=== PATIENT | female | born 2000 | race Caucasian/White ===

== ENCOUNTER 2019-06-21 07:29 | Emergency (ER) | payer BC ==
[2019-06-21 07:55] VITALS: BP 112/76
--- NOTE | 2019-06-21 08:15 | UC ---
Respiratory Complaint HPI - HPI Summary HPI Summary: cough x 2 days cough is dry and harsh , worse at night, worse during exertion and deep breathing better with rest, +nasal congestion, pnd, no fever, + chills + wheezing - History of Current Complaint Chief Complaint: UCRespiratory Stated Complaint: SINUS/CHEST CONGESTION COUGH Time Seen by Provider: 06/21/19 08:06 Hx Obtained From: Patient Hx Last Menstrual Period: 06/20/19 ?: No Onset/Duration: Gradual Onset, Lasting Days - 2, Still Present Timing: Constant Severity Initially: Moderate Severity Currently: Moderate Pain Intensity: 7 Character: Cough: Nonproductive Aggravating Factors: Exertion, Deep Breaths Alleviating Factors: Nothing Associated Signs And Symptoms: Positive: Chills, Wheezing, URI, Nasal Congestion. Negative: Dyspnea, Fever, Dizziness, Calf Pain, Calf Swelling - Allergies/Home Medications Allergies/Adverse Reactions: Allergies Allergy/AdvReac Type Severity Reaction Status Date / Time procaine [From Novocain] Allergy Swelling Verified 06/21/19 07:49 Home Medications: Home Medications "Decongestant" 06/21/19 [History] D-Methorphan/PE/Acetaminophen [Theraflu Severe Cold Mult 20-10-500 mg] 1 ligia PO SEE INSTRUCTIONS PRN 06/21/19 [History Confirmed 06/21/19] Etonogestrel [Nexplanon] 68 mg IMPLANT ONCE 06/21/19 [History Confirmed 06/21/19 ] Phenylephrine/Dm/Acetaminop/GG [Vicks Dayquil Severe Cold-Flu] 1 each PO SEE INSTRUCTIONS PRN 06/21/19 [History Confirmed 06/21/19] Ranitidine TAB (NF) [Zantac TAB (NF)] 150 mg PO BID 06/21/19 [History Confirmed 06/21/19] PMH/Surg Hx/FS Hx/Imm Hx Previously Healthy: Yes - Surgical History Surgical History: Yes Surgery Procedure, Year, and Place: T&A, ~2011 - Family History Known Family History: Negative: Diabetes - Social History Alcohol Use: Occasionally Substance Use Type: None Smoking Status (MU): Never Smoked Tobacco Review of Systems All Other Systems Reviewed And Are Negative: Yes Constitutional: Positive: Chills, Fatigue Skin: Positive: Negative Eyes: Positive: Negative ENT: Positive: Ear Ache, Nasal Discharge, Sinus Pain/Tenderness Respiratory: Positive: Cough Cardiovascular: Positive: Negative Is Patient Immunocompromised?: No Physical Exam Triage Information Reviewed: Yes Appearance: Well-Appearing, No Pain Distress, Well-Nourished Vital Signs: Initial Vital Signs Temp 98.2 F 06/21/19 07:47 Pulse 66 06/21/19 07:47 Resp 16 06/21/19 07:47 BP 112/76 06/21/19 07:47 Pulse Ox 100 06/21/19 07:47 Vital Signs Reviewed: Yes Eye Exam: Normal Eyes: Positive: Conjunctiva Clear ENT: Positive: Normal ENT inspection, Hearing grossly normal, Pharynx normal Neck: Positive: Supple, Nontender, No Lymphadenopathy Respiratory: Positive: Chest non-tender, Lungs clear, Normal breath sounds, No respiratory distress. Negative: Respiratory distress, Wheezing Cardiovascular: Positive: RRR, No Murmur, Pulses Normal Skin Exam: Normal Respiratory Course/Dx - Differential Dx/Diagnosis Provider Diagnosis: Bronchitis Discharge ED - Sign-Out/Discharge Documenting (check all that apply): Patient Departure All imaging exams completed and their final reports reviewed: No Studies - Discharge Plan Condition: Stable Disposition: HOME Prescriptions: Albuterol HFA INHALER* [Ventolin HFA Inhaler*] 2 puff INH Q6H PRN #1 mdi PRN Reason: Wheezing Benzonatate CAP* [Tessalon 100 MG CAP*] 100 mg PO TID PRN #15 cap PRN Reason: Cough Patient Education Materials: Acute Bronchitis (ED) Forms: *School Release Referrals: No Primary Care Phys,NOPCP [Primary Care Provider] - If Needed - Billing Disposition and Condition Condition: STABLE Disposition: Home
== END 2019-06-21 08:22 | disposition home or self-care (01) ==
LOC: UCCORT 07:29
DX: J40 Bronchitis, not specified as acute or chronic (principal); Z88.4 Allergy status to anesthetic agent
CPT/HCPCS: 99202; G0463